=== PATIENT | female | born 2000 | race Hispanic/Latino ===

== ENCOUNTER 2019-06-14 22:22 | Emergency (ER) | payer OTHER ==
[~2019-06-14] VITALS: Ht 157.5 cm; Wt 70.5 kg
[2019-06-14] MEDS ORDERED: birth control (22:37)
[2019-06-15] MEDS ORDERED: diphenhydrAMINE INJ 50MG/ML VIAL (J1200) IM ONE (03:00)
[2019-06-15 03:15] VITALS: BP 118/72
== END 2019-06-15 03:16 | disposition home or self-care (01) ==
LOC: M ED 22:22
DX: S80.861A Insect bite (nonvenomous), right lower leg, initial encounter (principal); W57.XXXA Bitten or stung by nonvenomous insect and other nonvenomous arthropods, initial encounter; Y92.9 Unspecified place or not applicable; Y93.9 Activity, unspecified; Y99.9 Unspecified external cause status; Z79.3 Long term (current) use of hormonal contraceptives
CPT/HCPCS: 96372; 99283; J1200